=== PATIENT | female | born 1950 | race Caucasian/White ===

== ENCOUNTER 2022-06-09 12:50 | Emergency (ER) | payer MEDICARE, OTHER, SELFPAY ==
--- NOTE | ~2022-06-09 | CT_ITS ---
EXAMINATION: CT CHEST WITHOUT CONTRAST CLINICAL INFORMATION: Cough and shortness of breath. History of pulmonary fibrosis. COMPARISON: CXR from 06/09/2022 TECHNIQUE: Multidetector volumetric CT imaging of the chest was done. Axial MIP volume rendering provided. Sagittal and coronal reformatted images were obtained. This CT examination was performed using dose optimization techniques as appropriate, variously including the following: *Automated exposure control *Adjustment of mA and/or kV according to patient size (this includes techniques or standardized protocols for targeted exams where dose is matched to indication/reason for exam; i.e. extremities or head) *Use of iterative reconstruction technique DLP: 178 mGy-cm FINDINGS: LUNGS AND PLEURA: There are imaging abnormalities of severe interstitial pulmonary fibrosis. Findings include diffuse reticular opacity and honeycombing throughout the left lung. Also, there are reticular opacities and scattered regions of subpleural honeycombing in the right upper, right middle and right lower lobe. Nonspecific patchy groundglass opacities are present in the right upper, right middle and right lower lobes. Multiple micronodular opacities in the right lung, as well, possibly secondary to noninfectious or infectious bronchiolitis. No comparison chest CT exams to allow commentary on the chronicity of these findings. No pleural effusion or pneumothorax. Prior wedge resection of the posterior right upper lobe. CARDIOVASCULAR: The heart size is normal. No pericardial effusion. There is chronic left-sided shift of cardiomediastinal structures. Pulmonary arteries are in the normal size range. Mild atherosclerosis of the thoracic aorta without aneurysm. MEDIASTINUM AND LOWER NECK: No mediastinal mass. There appears to be mild amount of gas in the esophageal vestibule; no overt hiatal hernia. Thyroid gland is atrophied. LYMPHATICS: No axillary or internal mammary lymphadenopathy. Mildly enlarged lymph node in the prevascular space of the mediastinum is 1 cm in short axis dimension. Subcarinal lymph node is difficult to precisely measure; it is approximately 1.3 cm AP. No bulky hilar lymphadenopathy, although evaluation for hilar lymph nodes is partially limited by the noncontrast nature of this test. UPPER ABDOMEN: Unremarkable. SKELETAL AND CHEST WALL: Bones are appeared to be diffusely osteopenic. Old compression fractures of the T5, T7 and T8 vertebral bodies. No suspicious bone lesions. CT/CT chest wo con IMPRESSION: * Severe pulmonary fibrosis with findings of extensive honeycombing throughout the left lung and scattered regions of honeycombing in the right lung. * The micronodular opacities in the right lung could be a manifestation of noninfectious or infectious bronchiolitis. * The patchy ground glass opacities in the right lung are nonspecific and of uncertain chronicity. They could reflect presence of infectious or noninfectious pneumonitis, depending on the overall clinical context. * Mild lymphadenopathy observed in the mediastinum is likely reactive lymphadenopathy. * Old compression fractures of T5, T7 and T8 vertebral bodies.
--- NOTE | ~2022-06-09 | XR_ITS ---
EXAMINATION: XR CHEST CLINICAL INFORMATION: Shortness of breath. COMPARISON: None TECHNIQUE: Frontal view of the chest was obtained. FINDINGS: Coarsened interstitial markings are seen bilaterally with cystic changes, left greater than right. Mild cardiac mediastinal shift to the left. The heart and mediastinal structures are otherwise unremarkable. XR/XR chest 1V IMPRESSION: Coarsened interstitial markings bilaterally suggest chronic interstitial disease with cystic changes and volume loss in the left lung. An acute on chronic infectious/inflammatory process cannot be excluded.
--- NOTE | ~2022-06-09 | CT_ITS ---
EXAMINATION: CT ABDOMEN AND PELVIS WITHOUT CONTRAST CLINICAL INFORMATION: Flank pain. Dysuria. Question renal colic. COMPARISON: Same day corresponding chest CT TECHNIQUE: Multidetector volumetric imaging was performed from the superior aspect of the liver through the pubic symphysis. Sagittal and coronal reformatted images were obtained on the technologist's workstation. This CT examination was performed using dose optimization techniques as appropriate, variously including the following: *Automated exposure control *Adjustment of mA and/or kV according to patient size (this includes techniques or standardized protocols for targeted exams where dose is matched to indication/reason for exam; i.e. extremities or head) *Use of iterative reconstruction technique DLP: 442 mGy-cm FINDINGS: Please see same day corresponding chest CT report for findings of the included chest. The liver demonstrates normal size, contour and attenuation. There is 1.5 cm cyst within the caudate lobe of the liver. A few other smaller hepatic hypodensities are too small to accurately characterize. The gallbladder is normal in appearance. The pancreas, spleen and right adrenal gland are unremarkable. There is mild hypertrophy of the left adrenal gland. Symmetrically sized kidneys. There is a 1 cm nonobstructing curvilinear calculus within the lower pole of the right kidney which demonstrates Hounsfield units of approximately 500. This stone is located approximately 8.6 cm from the posterior skin surface. There are a few other scattered 1 to 2 mm nonobstructing calculi within the upper pole of the right kidney. No left-sided renal calculi are identified. There is no hydronephrosis of either kidney. There is a partially exophytic cyst off the right kidney which measures approximately 5.8 cm in maximum dimension. Normal caliber loops of small and large bowel. Normal appendix. Moderate colonic diverticulosis without CT evidence to suggest active diverticulitis. Tiny hiatal hernia is noted. Normal caliber abdominal aorta demonstrating mild to moderate atherosclerotic disease. No retroperitoneal lymphadenopathy. Tiny fat-containing umbilical hernia. The bladder is decompressed and therefore not optimally characterized. Unremarkable CT appearance of the uterus. No gross free pelvic fluid. No inguinal lymphadenopathy. Diffuse osteopenia. Degenerative changes of the spine. CT/CT abdomen pelvis wo con IMPRESSION: -Nonobstructing right renal calculi. No left-sided renal calculi. No hydronephrosis of either kidney. -Right renal cyst. -Colonic diverticulosis. Fleischner guidelines were followed.
[2022-06-09 14:16] VITALS: BP 138/65; PULSE 91; RESP 19; TEMP 37.3; O2SAT 93; BMI 21.5
--- NOTE | 2022-06-09 14:21 | ECG_ITS ---
Test Reason : SOB Blood Pressure : / mmHG Vent. Rate : 076 BPM Atrial Rate : 076 BPM P-R Int : 110 ms QRS Dur : 094 ms QT Int : 404 ms P-R-T Axes : -06 -01 -03 degrees QTc Int : 454 ms Sinus rhythm with short LA ST & T wave abnormality, consider anterior ischemia Abnormal ECG No previous ECGs available Referred By: Generic ED Physician Electronically Signed By:ABBY ZAVALA
[2022-06-09 14:50] LABS: MANUAL DIFF FLAG NO
[2022-06-09 14:55] LABS: Basophils Absolute Auto 0.1 X10*3/uL (0.0-0.2); Basophils Percent Auto 0.9 % (0-2); Eosinophils Absolute Auto 0.4 X10*3/uL (0.0-0.4); Eosinophils Percent Auto 5.4 % (0-4); Hematocrit 39.6 % (37.0-47.0); Hemoglobin 12.4 g/dl (12.0-16.0); Imm Gran Abs Auto 0.02 X10*3/uL (0.00-0.03); Imm Gran Pct Auto 0.3 % (0.0-0.4); Lymphocytes Absolute Auto 1.4 X10*3/uL (1.2-4.9); Lymphocytes Percent Auto 20.8 % (20-40); Mean Corpuscular HGB Conc 31.3 g/dl (31.0-35.0); Mean Corpuscular Hemoglobin 27.2 pg (27.0-33.0); Mean Corpuscular Volume 86.8 fL (80.0-98.0); Monocytes Absolute Auto 0.7 X10*3/uL (0.1-1.2); Monocytes Percent Auto 10.6 % (2-11); Neutrophils Absolute Auto 4.1 x10*3/uL (2.0-8.3); Platelet Count 412 X10*3/uL (160-400); Red Blood Count 4.56 X10*6/uL (4.20-5.50); Red Cell Distribution Width 13.5 % (11.0-16.0); White Blood Count 6.5 X10*3/uL (4.8-10.8)
[2022-06-09 14:57] LABS: Appearance Urine CLEAR; Color Urine YELLOW; Glucose Urine UA NEG (NEG); Leukocyte Esterase Urine 1+ (NEG); Nitrite Urine NEG (NEG); PH 5.5 (5.0-8.0); Specific Gravity - Urine >= 1.030 (1.005-1.025); UACC Culture Trigger YES; Urine Blood 2+ (NEG); Urine Ketones 5 MG/DL (NEG); Urine Protein NEG (NEG-TRACE)
[2022-06-09 15:15] LABS: Anion Gap 11 (12-20); Blood Urea Nitrogen 15 mg/dL (9-16); Calcium 8.7 mg/dL (8.4-10.2); Carbon Dioxide 26 mmol/L (22-29); Chloride 104 mmol/L (96-108); Estimated Glomerular Filt Rate > 60; Glucose Random 92 mg/dL (60-115); Potassium 4.2 mmol/L (3.3-5.1); Sodium 137 mmol/L (135-145)
[2022-06-09 15:18] LABS: B Type Natriuretic Peptide 64 pg/mL (<100); Troponin-I High Sensitivity 3.8 ng/L (<3.5-17.0)
[2022-06-09 15:25] LABS: Mucus Urine 1+ /LPF; Squamous Epithelial Cell Urine 1+ /LPF
[2022-06-09 15:26] LABS: Calcium Oxalate Crystals Urine 1+ /LPF
[2022-06-09 15:29] LABS: COVID-19 Test Negative (Negative); IDNOW Serial# 16C4AD1C
--- NOTE | 2022-06-09 18:04 | ED_ITS ---
HPI - SOB/Dyspnea General Chief Complaint: Dyspnea Stated Complaint: diff breathing lungs full of something Time Seen by Provider: 06/09/22 14:42 Source: patient and family Mode of arrival: ambulatory History of Present Illness HPI Narrative: 72-year-old female with history of interstitial pulmonary fibrosis reports feeling more short of breath than usual and complaining of feeling congested at the right side of her chest and coughing up green sputum. She denies any fevers or chest pain and states that she has noticed some bleeding after peeing. She also had significant cramping in the lower abdominal area and does have a history of renal colic. Patient states that her oxygenation is 94% at baseline. Patient states she is aware that she has ?almost no long on the left?. Related Data Previous Rx's Medication Instructions Recorded amoxicillin 875 mg-potassium 1 tab PO Q12H 7 days #14 tabs 06/09/22 clavulanate 125 mg tablet Allergies Allergy/AdvReac Type Severity Reaction Status Date / Time No Known Allergies Allergy Verified 06/09/22 14:15 Review of Systems Review of Systems: Pertinent positives and negatives as stated in HPI 10 point review of systems is otherwise negative. PMFSH Past Medical History Source: nursing notes reviewed Social History Social History Advance Directives: Yes Advance Directives Information Provided: No Advance Directives on File: No Physical Exam Vital Signs: Vital Signs: Last Vital Signs Temp 99.1 F 06/09/22 14:16 Pulse 91 06/09/22 14:16 Resp 19 06/09/22 14:16 BP 138/65 06/09/22 14:16 Pulse Ox 93 06/09/22 14:16 O2 Del Method 06/09/22 14:16 BMI result Body Mass Index 21.5 VITAL SIGNS: Reviewed. GENERAL: Well developed, well nourished, in no acute distress. HEAD: Normocephalic/atraumatic EYES: PERRLA, EOMI EARS: Ext canals without abnormality OROPHARYNX: no oral lesions noted, posterior pharynx clear LUNGS: Good inspiratory effort, minimal breath sounds on the left, otherwise coarse rhonchi and crackles throughout. No increased work of breathing. SpO2<93> CARDIOVASCULAR: Regular rate and rhythm without noted murmurs, no JVD or lower extremity edema. ABDOMEN: Soft, non-tender, non-distended with bowel sounds. MUSCULOSKELETAL: No tenderness, deformities, or effusions noted on gross inspection. EXTREMITIES: No cyanosis, clubbing or edema. SKIN: Inspection of the skin reveals no rashes NEUROLOGIC: Alert and oriented x 4. Strength and sensation to light touch were grossly intact x 4. Course Course Course Narrative: 72-year-old female with history and clinical presentation suggestive of possible renal colic/cystitis although patient is no longer experiencing lower abdominal/pelvic cramping and suspect that on review of all investigations with patient's chest x-ray and CT scan that she will likely require antibiotics. Urinalysis was also noted to be positive for blood further supporting the possibility of renal colic. CT scan of abdomen pelvis is pending and patient was provided with initial antibiotics here in the emergency room. Signed out to Dr Oh: f/u CT scan abd/pelvis MDM - SOB/Dyspnea Lab Data Result diagrams: 06/09/22 14:30 06/09/22 14:30 Labs: Lab Results 06/09/22 06/09/22 06/09/22 Range/Units 14:30 14:30 14:30 WBC 6.5 (4.8-10.8) X10*3/uL RBC 4.56 (4.20-5.50) X10*6/uL Hgb 12.4 (12.0-16.0) g/dl Hct 39.6 (37.0-47.0) % MCV 86.8 (80.0-98.0) fL MCH 27.2 (27.0-33.0) pg MCHC 31.3 (31.0-35.0) g/dl RDW 13.5 (11.0-16.0) % Plt Count 412 H (160-400) X10*3/uL MPV 9.0 L (9.4-12.3) fL Immature Gran % (Auto) 0.3 (0.0-0.4) % Neut % (Auto) 62.0 (45-73) % Lymph % (Auto) 20.8 (20-40) % [place] % (Auto) 10.6 (2-11) % Eos % (Auto) 5.4 H (0-4) % Baso % (Auto) 0.9 (0-2) % Lymph # (Auto) 1.4 (1.2-4.9) X10*3/uL [place] # (Auto) 0.7 (0.1-1.2) X10*3/uL Eos # (Auto) 0.4 (0.0-0.4) X10*3/uL Baso # (Auto) 0.1 (0.0-0.2) X10*3/uL Abs Immat Gran (auto) 0.02 (0.00-0.03) X10*3/uL Absolute Neuts (auto) 4.1 (2.0-8.3) x10*3/uL Absolute Nucleated RBC 0.000 (0.0-0.012) X10*3/uL Nucleated RBC % (auto) 0.0 (0.0-0.2) /100WBC Sodium 137 (135-145) mmol/L Potassium 4.2 (3.3-5.1) mmol/L Chloride 104 (96-108) mmol/L Carbon Dioxide 26 (22-29) mmol/L Anion Gap 11 L (12-20) BUN 15 (9-16) mg/dL Creatinine 0.60 (0.5-1.4) mg/dL Estim Creat Clear Calc 66.0 Estimated GFR > 60 Random Glucose 92 (60-115) mg/dL Calcium 8.7 (8.4-10.2) mg/dL Troponin I High Sens 3.8 (<3.5-17.0) ng/L B-Natriuretic Peptide 64 (<100) pg/mL Urine Color Urine Appearance Urine pH (5.0-8.0) Ur Specific [place] (1.005-1.025) Urine Protein (NEG-TRACE) MG/DL Urine Glucose (UA) (NEG) MG/DL Urine Ketones (NEG) MG/DL Urine Blood (NEG) Urine Nitrite (NEG) Ur Leukocyte Esterase (NEG) Urine RBC (0) /HPF Urine WBC (0-4) /HPF Ur Squamous Epith Cells /LPF Calcium Oxalate Crystal /LPF Urine Bacteria /LPF Urine Mucus /LPF COVID-19 (JUANITA) (Negative) COVID-19 Clin Com 06/09/22 06/09/22 Range/Units 14:30 14:30 WBC (4.8-10.8) X10*3/uL RBC (4.20-5.50) X10*6/uL Hgb (12.0-16.0) g/dl Hct (37.0-47.0) % MCV (80.0-98.0) fL MCH (27.0-33.0) pg MCHC (31.0-35.0) g/dl RDW (11.0-16.0) % Plt Count (160-400) X10*3/uL MPV (9.4-12.3) fL Immature Gran % (Auto) (0.0-0.4) % Neut % (Auto) (45-73) % Lymph % (Auto) (20-40) % [place] % (Auto) (2-11) % Eos % (Auto) (0-4) % Baso % (Auto) (0-2) % Lymph # (Auto) (1.2-4.9) X10*3/uL [place] # (Auto) (0.1-1.2) X10*3/uL Eos # (Auto) (0.0-0.4) X10*3/uL Baso # (Auto) (0.0-0.2) X10*3/uL Abs Immat Gran (auto) (0.00-0.03) X10*3/uL Absolute Neuts (auto) (2.0-8.3) x10*3/uL Absolute Nucleated RBC (0.0-0.012) X10*3/uL Nucleated RBC % (auto) (0.0-0.2) /100WBC Sodium (135-145) mmol/L Potassium (3.3-5.1) mmol/L Chloride (96-108) mmol/L Carbon Dioxide (22-29) mmol/L Anion Gap (12-20) BUN (9-16) mg/dL Creatinine (0.5-1.4) mg/dL Estim Creat Clear Calc Estimated GFR Random Glucose (60-115) mg/dL Calcium (8.4-10.2) mg/dL Troponin I High Sens (<3.5-17.0) ng/L B-Natriuretic Peptide (<100) pg/mL Urine Color YELLOW Urine Appearance CLEAR Urine pH 5.5 (5.0-8.0) Ur Specific [place] >= 1.030 H (1.005-1.025) Urine Protein NEG (NEG-TRACE) MG/DL Urine Glucose (UA) NEG (NEG) MG/DL Urine Ketones 5 (NEG) MG/DL Urine Blood 2+ H (NEG) Urine Nitrite NEG (NEG) Ur Leukocyte Esterase 1+ H (NEG) Urine RBC 10-14 H (0) /HPF Urine WBC 1-4 (0-4) /HPF Ur Squamous Epith Cells 1+ /LPF Calcium Oxalate Crystal 1+ /LPF Urine Bacteria NONE /LPF Urine Mucus 1+ /LPF COVID-19 (JUANITA) Negative (Negative) COVID-19 Clin Com See Note Discharge Plan Discharge Clinical Impression: Bronchitis, Cystitis Patient Disposition: Still a Patient Prescriptions: New amoxicillin-pot clavulanate 875-125 mg tablet 1 tab PO Q12H 7 Days Qty: 14 0RF
[2022-06-09] MEDS: Amoxicillin/Potassium Clav 875 MG TABLET PO (18:26)
--- NOTE | 2022-06-09 19:06 | PC.NURSE ---
Assumed care of this pt. at 1900 - report from Tish Morin RN
[2022-06-09] MEDS: predniSONE 20 MG TABLET 40 MG PO (19:45)
[2022-06-09 19:46] VITALS: BP 136/60; PULSE 81; RESP 20; TEMP 36.2; O2SAT 96
== END 2022-06-09 20:03 | disposition home or self-care (01) ==
PROVIDERS: Student in an Organized Health Care Education/Training Program; Emergency Provider Internal Medicine
DX: J40 Bronchitis, not specified as acute or chronic (principal); N30.90 Cystitis, unspecified without hematuria; R10.9 Unspecified abdominal pain; M54.6 Pain in thoracic spine; R06.02 Shortness of breath; Z20.822 Contact with and (suspected) exposure to COVID-19; Z79.899 Other long term (current) drug therapy
CPT/HCPCS: 36415; 71045; 71250; 74176; 80048; 81001; 83880; 84484; 85025; 87086; 87635; 93005; 99284

== ENCOUNTER 2022-06-20 15:04 | Inpatient (IN) | payer MEDICARE, OTHER, SELFPAY ==
--- NOTE | ~2022-06-20 | XR_ITS ---
EXAMINATION: XR CHEST CLINICAL INFORMATION: Shortness of breath COMPARISON: Chest x-ray 06/01/2022. CT chest 06/01/2022 TECHNIQUE: 2 views of the chest were obtained. FINDINGS: Stable chronic changes of marked interstitial lung disease with coarse cystic areas throughout the lung. No acute change of chest. No acute airspace disease. No pleural effusion or pneumothorax. XR/XR chest 2V IMPRESSION: Stable chronic changes. No acute abnormality.
[2022-06-20 16:12] VITALS: BP 113/54; PULSE 103; RESP 16; TEMP 36.6; O2SAT 89; BMI 21.0
--- NOTE | 2022-06-20 16:42 | PC.NURSE ---
relief docking master (Annita Coe) aware of patient's room air oxygen saturation. Per pt, baseline oxygen is 93-94% on room air. Dx with bronchitis 1 week ago.
[2022-06-20 21:08] VITALS: BP 102/48; PULSE 79; TEMP 36.4; O2SAT 86
[2022-06-20 21:16] LABS: Basophils Absolute Auto 0.1 X10*3/uL (0.0-0.2); Basophils Percent Auto 0.6 % (0-2); Eosinophils Absolute Auto 0.5 X10*3/uL (0.0-0.4); Eosinophils Percent Auto 5.8 % (0-4); Hematocrit 42.4 % (37.0-47.0); Imm Gran Abs Auto 0.04 X10*3/uL (0.00-0.03); Imm Gran Pct Auto 0.5 % (0.0-0.4); Lymphocytes Absolute Auto 1.7 X10*3/uL (1.2-4.9); Lymphocytes Percent Auto 19.7 % (20-40); MANUAL DIFF FLAG NO; Mean Corpuscular HGB Conc 30.7 g/dl (31.0-35.0); Mean Corpuscular Hemoglobin 26.5 pg (27.0-33.0); Mean Corpuscular Volume 86.4 fL (80.0-98.0); Mean Platelet Volume 9.1 fL (9.4-12.3); Neutrophils Absolute Auto 5.2 x10*3/uL (2.0-8.3); Neutrophils Percent Auto 61.4 % (45-73); Platelet Count 376 X10*3/uL (160-400); Red Blood Count 4.91 X10*6/uL (4.20-5.50); Red Cell Distribution Width 13.9 % (11.0-16.0); White Blood Count 8.5 X10*3/uL (4.8-10.8)
[2022-06-20 21:29] LABS: Anion Gap 12 (12-20); Blood Urea Nitrogen 18 mg/dL (9-16); Calcium 8.6 mg/dL (8.4-10.2); Carbon Dioxide 28 mmol/L (22-29); Chloride 105 mmol/L (96-108); Creatinine Clr Calc Pharmacy 62.9; Estimated Glomerular Filt Rate > 60; Glucose Random 133 mg/dL (60-115); Sodium 141 mmol/L (135-145)
[2022-06-20 21:31] LABS: COVID-19 Test Negative (Negative)
--- NOTE | 2022-06-20 22:10 | ED.SOB ---
HPI - SOB/Dyspnea General Chief Complaint: Dyspnea Stated Complaint: Bronchitis Time Seen by Provider: 06/20/22 22:10 Source: patient Mode of arrival: ambulatory Limitations: no limitations History of Present Illness HPI Narrative: patient with idiopathic pulmonary fibrosis was seen here on 06/09 came from [facility] being of increased shortness breath for last [address] scan of the chest on 06/09 which shows honeycombing and multiple infiltrates but CBC count were normal discharged on doxycycline Augmentin could not take Augmentin because of size of the pill and nausea. patient to the course of prednisone also Comes here is not getting better. When patient was influenza she was doing much better than after coming to this area. No fever no chills no chest pain or palpitation patient shortness of breath gets worse when ambulating was saturating 86% at room air on arrival Related Data Previous Rx's Medication Instructions Recorded amoxicillin 875 mg-potassium 1 tab PO BID #20 tabs 06/09/22 clavulanate 125 mg tablet codeine 10 mg-guaifenesin 100 mg/5 10 ml PO Q6H PRN cough #237 mL 06/09/22 mL oral liquid doxycycline hyclate 100 mg tablet 100 mg PO BID #20 tabs 06/09/22 prednisone 20 mg tablet 40 mg PO DAILY #10 tabs 06/09/22 Allergies Allergy/AdvReac Type Severity Reaction Status Date / Time amoxicillin [From Augmentin] Allergy Vomiting Verified 06/20/22 16:19 clavulanic acid Allergy Vomiting Verified 06/20/22 16:19 [From Augmentin] Review of Systems Review of Systems: Yes all other systems are reviewed and are negative PMFSH Social History Social History Advance Directives: No Advance Directives Information Provided: No Physical Exam Vital Signs: Vital Signs: Last Vital Signs Temp 98.7 F 06/21/22 00:24 Pulse 88 06/21/22 00:24 Resp 20 06/21/22 00:24 BP 118/53 L 06/21/22 00:24 Pulse Ox 91 L 06/21/22 00:24 O2 Del Method 06/21/22 00:24 O2 Flow Rate 2 06/21/22 00:24 BMI result Body Mass Index 21.0 Appearance: Alert. Oriented X3. thin emaciated patient Eyes: no pallor or icterus ENT: Pharynx normal. Oral Mucosa moist Neck: Normal inspection. Neck supple. CVS: Normal heart rate and rhythm. Pulses normal. Respiratory: mild respiratory distress. Equal air entry bilateral, bilateral rhonchi and crackles diffusely Abdomen: Soft and nontender. Bowel sounds are present, no mass palpable, no CVA tenderness Skin: Skin warm and dry. Normal skin color. Normal skin turgor. Extremities: No lower extremity edema. No calf tenderness clubbing++ Neuro: Oriented X 3. No motor deficit. No sensory deficit.No cerebellar signs , cranial nerves II-XII intact MDM - SOB/Dyspnea MDM Narrative Medical decision making narrative: patient with pulmonary fibrosis with increased hypoxia had a CT scan done on 06/09 which showed diffuse honeycombing throughout the left lung and right lungs taking doxycycline comes here with increased shortness of breath saturating 86- 87% at room having cough with mucopurulent phlegm will admit patient for hypoxia continue steroid treatment and antibiotics Medical Records Attestation: I reviewed the patient's medical records. Lab Data Attestation: I reviewed the patient's lab results. Result diagrams: 06/20/22 21:05 06/20/22 21:05 Labs: Lab Results 06/20/22 06/20/22 06/20/22 Range/Units 21:05 21:05 21:05 WBC 8.5 (4.8-10.8) X10*3/uL RBC 4.91 (4.20-5.50) X10*6/uL Hgb 13.0 (12.0-16.0) g/dl Hct 42.4 (37.0-47.0) % MCV 86.4 (80.0-98.0) fL MCH 26.5 L (27.0-33.0) pg MCHC 30.7 L (31.0-35.0) g/dl RDW 13.9 (11.0-16.0) % Plt Count 376 (160-400) X10*3/uL MPV 9.1 L (9.4-12.3) fL Immature Gran % (Auto) 0.5 H (0.0-0.4) % Neut % (Auto) 61.4 (45-73) % Lymph % (Auto) 19.7 L (20-40) % [place] % (Auto) 12.0 H (2-11) % Eos % (Auto) 5.8 H (0-4) % Baso % (Auto) 0.6 (0-2) % Lymph # (Auto) 1.7 (1.2-4.9) X10*3/uL [place] # (Auto) 1.0 (0.1-1.2) X10*3/uL Eos # (Auto) 0.5 H (0.0-0.4) X10*3/uL Baso # (Auto) 0.1 (0.0-0.2) X10*3/uL Abs Immat Gran (auto) 0.04 H (0.00-0.03) X10*3/uL Absolute Neuts (auto) 5.2 (2.0-8.3) x10*3/uL Absolute Nucleated RBC 0.000 (0.0-0.012) X10*3/uL Nucleated RBC % (auto) 0.0 (0.0-0.2) /100WBC Sodium 141 (135-145) mmol/L Potassium 4.0 (3.3-5.1) mmol/L Chloride 105 (96-108) mmol/L Carbon Dioxide 28 (22-29) mmol/L Anion Gap 12 (12-20) BUN 18 H (9-16) mg/dL Creatinine 0.63 (0.5-1.4) mg/dL Estim Creat Clear Calc 62.9 Estimated GFR > 60 Random Glucose 133 H (60-115) mg/dL Calcium 8.6 (8.4-10.2) mg/dL COVID-19 (JUANITA) Negative (Negative) COVID-19 Clin Com See Note Discharge Plan Discharge Clinical Impression: Acute exacerbation of chronic obstructive airways disease, Pulmonary fibrosis Patient Disposition: Admitted As Inpatient
[2022-06-20 22:24] VITALS: BP 99/48; PULSE 82; RESP 16; TEMP 37.3; O2SAT 98
[2022-06-20] MEDS: Albuterol Sulfate (0.083%) 2.5 MG/3 ML VIAL.NEB 5 MG INHALE (22:47)
[2022-06-20] MEDS: methylPREDNISolone Sod Succ 125 MG/2 ML VIAL IVPUSH (22:51)
[2022-06-20] MEDS: 0.9 % Sodium Chloride 1,000 ML 999 ML IV (23:16)
[2022-06-20] MEDS: cefTRIAXone sodium 1 GM in 0.9 % Sodium Chloride 50 ML IV (23:36)
[2022-06-21] VITALS (8 sets, daily range): BP systolic 96–143; BP diastolic 47–67; PULSE 72–110; RESP 12–22; TEMP 36–37.1; O2SAT 91–96
[2022-06-21] MEDS: Albuterol/Iprat 2.5/0.5MG 3 ML AMPUL.NEB INHALE (01:01)
--- NOTE | 2022-06-21 01:24 | PM.IMHP ---
History of Present Illness Date of Service: 06/21/22 Chief Complaint: SOB, cough This is a 72-year-old female past medical history of IPF who presents to the hospital with complaints of shortness of breath, cough, and sputum production. Patient reports that her symptoms started at the end of May, she was seen in the hospital on 06/09, and at that time was diagnosed with bronchitis, was given doxycycline and Augmentin and discharged home. Patient reports that she was unable to take Augmentin because it made her feel very sick and she vomited after every pill, she did take doxycycline, she was also given prednisone. she reports that she initially improved but then about her few days ago developed worsening shortness of breath, worsening cough, and worsening sputum production. Patient reports no fever but has chills, denies any chest pain, no palpitations, no abdominal pain nausea or vomiting, no diarrhea or constipation, no urinary symptoms and no lower extremity edema. Reports that she lives in [place] currently, but was born and raised in [place] and she visits here often.she currently has no utilization reviewer but has an appointment for utilization reviewer at the end of this month. patient reports that her IPF is usually stable and has not been sick for the past 7 years and that is why she does not really follow up with utilization reviewer. On arrival to the ED patient was found to be satting 87-89% on room air. Patient reports no use of oxygen at home. Labs Are significant for WBC count of 5.6, hemoglobin of 11.7, hematocrit 36.9, BUN of 19, calcium 7.9, COVID-19 negative, chest x-ray showed stable chronic changes with no acute abnormality but when compared to chest x-ray from May it appears worse. Patient started on antibiotics and will be admitted for further management Review of Systems Review of Systems: Yes all other systems are reviewed and are negative REPLACED BY [facility] Medical History (Updated 06/21/22 @ 06:04 by Syeda Montero MD) IPF (idiopathic pulmonary fibrosis) Family History (Updated 06/21/22 @ 06:04 by Syeda Montero MD) Other No family history of coronary artery disease Surgical History (Updated 06/21/22 @ 06:04 by Syeda Montero MD) History of removal of ureteral stent Social History Advance Directives: No Advance Directives Information Provided: No Meds Allergies Allergy/AdvReac Type Severity Reaction Status Date / Time amoxicillin [From Augmentin] Allergy Vomiting Verified 06/20/22 16:19 clavulanic acid Allergy Vomiting Verified 06/20/22 16:19 [From Augmentin] Physical Exam Vital Signs and Narrative: Vital Signs: Last Vital Signs Temp 98.7 F 06/21/22 00:24 Pulse 88 06/21/22 00:24 Resp 20 06/21/22 00:24 BP 118/53 L 06/21/22 00:24 Pulse Ox 91 L 06/21/22 00:24 O2 Del Method 06/21/22 00:24 O2 Flow Rate 2 06/21/22 00:24 BMI result Body Mass Index 21.0 Const: General: cooperative and no acute distress Orientation/consciousness: patient oriented x3 Eyes: General: appearance normal, both eyes and all related structures Pupils: Equal, round and reactive pupils present Resp: Other: significant crackles bilaterally Effort & Inspection: normal respiratory effort Cardio: Rate: regular rate Rhythm: regular rhythm GI: Palpation (GI): Soft to palpation Auscultation: normal bowel sounds Skin: General skin exam: no rashes or lesions noted Neuro: General: patient oriented x3 Cranial nerves: Yes Equal, round and reactive pupils present Cognition (Neuro): normal cognition Extrem: General: Yes normal to inspection and Yes no pedal edema Results Labs CBC and Chem 7: 06/21/22 04:41 06/21/22 04:41 Labs: Laboratory Results - last 24 hr 06/20/22 06/20/22 06/20/22 21:05 21:05 21:05 MCV 86.4 MCH 26.5 L MCHC 30.7 L RDW 13.9 Plt Count 376 MPV 9.1 L Immature Gran % (Auto) 0.5 H Neut % (Auto) 61.4 Lymph % (Auto) 19.7 L [place] % (Auto) 12.0 H Eos % (Auto) 5.8 H Baso % (Auto) 0.6 Lymph # (Auto) 1.7 [place] # (Auto) 1.0 Eos # (Auto) 0.5 H Baso # (Auto) 0.1 Abs Immat Gran (auto) 0.04 H Absolute Neuts (auto) 5.2 Absolute Nucleated RBC 0.000 Nucleated RBC % (auto) 0.0 Anion Gap 12 Estim Creat Clear Calc 62.9 Estimated GFR > 60 Random Glucose 133 H Calcium 8.6 COVID-19 (JUANITA) Negative COVID-19 Clin Com See Note Imaging Radiologist's Impressions: Impressions Chest X-Ray 06/20/22 17:00 IMPRESSION: Stable chronic changes. No acute abnormality. Assessment and Plan (1) Acute respiratory failure with hypoxia: Status: Acute (2) Pulmonary fibrosis: Status: Acute Plan this is a 72-year-old female with history of IPF presents to the hospital with cough, sputum production, dyspnea on minimal exertion # acute respiratory failure with hypoxia - found to have O2 level in the 80s on room air - appears to have increased infiltrates on chest x-ray on my review - no leukocytosis - will treat with IV antibiotics as she failed p.o. antibiotic - Solu-Medrol and DuoNeb p.r.n. - monitor respiratory status # acute exacerbation of IPF - with likely superimposed infection /pneumonia - IV antibiotics, Solu-Medrol, breathing treatment p.r.n. - O2 as required - Follow utilization reviewer's outpatient once stable for discharge DVT prophylaxis: Lovenox given patient's hypoxia need for oxygen, as well as failed outpatient oral antibiotics, patient will require minimum 2 night hospital stay for further management and monitoring Quality Stroke Does the patient have a stroke diagnosis?: No VTE Prior VTE?: No VTE Risk Level:: Medical - moderate - high VTE Device Contraindication: Treatment Not Indicated VTE Drug Contraindication: N/A - Med Ordered
[2022-06-21] MEDS: Albuterol Sulfate (0.083%) 2.5 MG/3 ML VIAL.NEB 5 MG INHALE (01:35)
[2022-06-21] MEDS: methylPREDNISolone Sod Succ 40 MG/ML VIAL IVPUSH ×2 (03:02→13:28)
[2022-06-21 05:00] LABS: Basophils Percent Auto 0.5 % (0-2); Eosinophils Percent Auto 0.2 % (0-4); Hematocrit 36.9 % (37.0-47.0); Hemoglobin 11.7 g/dl (12.0-16.0); Imm Gran Abs Auto 0.03 X10*3/uL (0.00-0.03); Imm Gran Pct Auto 0.5 % (0.0-0.4); Lymphocytes Absolute Auto 0.2 X10*3/uL (1.2-4.9); Lymphocytes Percent Auto 3.9 % (20-40); MANUAL DIFF FLAG SCAN; Mean Corpuscular HGB Conc 31.7 g/dl (31.0-35.0); Mean Corpuscular Hemoglobin 27.5 pg (27.0-33.0); Mean Corpuscular Volume 86.6 fL (80.0-98.0); Mean Platelet Volume 9.4 fL (9.4-12.3); Monocytes Percent Auto 0.4 % (2-11); Neutrophils Absolute Auto 5.3 x10*3/uL (2.0-8.3); Neutrophils Percent Auto 94.5 % (45-73); Platelet Count 294 X10*3/uL (160-400); Red Blood Count 4.26 X10*6/uL (4.20-5.50); Red Cell Distribution Width 14.1 % (11.0-16.0); SCAN SMEAR FLAG 1; White Blood Count 5.6 X10*3/uL (4.8-10.8)
[2022-06-21 05:20] LABS: Anion Gap 13 (12-20); Blood Urea Nitrogen 19 mg/dL (9-16); Calcium 7.9 mg/dL (8.4-10.2); Carbon Dioxide 24 mmol/L (22-29); Chloride 107 mmol/L (96-108); Creatinine Clr Calc Pharmacy 63.8; Estimated Glomerular Filt Rate > 60; Glucose Random 253 mg/dL (60-115); Potassium 3.3 mmol/L (3.3-5.1); Sodium 141 mmol/L (135-145)
[2022-06-21 05:21] LABS: SLIDE REVIEW VERIFIED
[2022-06-21] MEDS: Enoxaparin Sodium 40 MG/0.4 ML SYRINGE SUBCUT (07:20)
[2022-06-21] MEDS: Azithromycin 500 MG TABLET PO (07:20)
--- NOTE | 2022-06-21 07:23 | PC.NURSE ---
Pt A&OX4 at this time, no complaints of pain, lungs diminished in the bases, NSR on monitor at this time. Antibiotic given with breakfast tray as per pt request, states she cannot take without food due to nausea. Pt is ambulatory into the bathroom on RA with no difficulties. Pt remains on 2L NC at this time, BP slightly soft but taken just upon waking. Call reed within reach. Will continue to monitor.
--- NOTE | 2022-06-21 09:40 | MHC.CM.ED ---
PATIENT IS VISITING FOR THE SUMMER FROM [facility]. SHE DOES HAVE A NEW PCP THERE AND CASE MANAGEMENT WILL LOOK UP NAME AND ADDRESS. COVID VAX X 4. NO DME OR VNA SERVICES. SISTER ALTA IS THE HCP AND A COPY IS REQUESTED. PATIENT IS NOT ON O2 AND HOPES TO BE ABLE TO DC WITHOUT THE USE OF. IMM 06/21 IN CHART
--- NOTE | 2022-06-21 10:01 | PHA.MEDREC ---
Pharmacy Consult ? Medication Reconciliation Pharmacy has completed the medication reconciliation. Patient brought in rx bottles of medications prescribed last time. Reports allergy to the augmenting where she vomited as well as difficultly breathing. Patient reports never using the cough syrup but has it at home if needed. Previously on multivitamin but a provider told her stop do to interactions. Meggan Joseph, PharmD
[2022-06-21 10:11] LABS: Erythrocyte Sedimentation Rate 42 MM/HR (0-20)
[2022-06-21] MEDS: 0.9 % Sodium Chloride Flush 3 ML SYRINGE IVFLUSH (13:32)
--- NOTE | 2022-06-21 13:54 | P.EN_ITS ---
Event Note Date of Service: 06/21/22 Event Note: S Wheezing + dyspneic though improved from admission Thick green sputum O VS- Temp Pulse Resp BP Pulse Ox O2 Del Method O2 Flow Rate 96.8 F 72 18 143/67 H 96 2 06/21/22 11:36 06/21/22 11:36 06/21/22 11:36 06/21/22 11:36 06/21/22 11:36 06/21/22 11:36 06/21/22 11:36 gen- NAD lungs- diffuse insp crackles + exp wheezes CV- RRR no m/r/g abd- soft/NT ext- no C/C/E labs- Laboratory Results - last 24 hr 06/20/22 06/20/22 06/20/22 21:05 21:05 21:05 WBC 8.5 RBC 4.91 Hgb 13.0 Hct 42.4 MCV 86.4 MCH 26.5 L MCHC 30.7 L RDW 13.9 Plt Count 376 MPV 9.1 L Immature Gran % (Auto) 0.5 H Neut % (Auto) 61.4 Lymph % (Auto) 19.7 L [place] % (Auto) 12.0 H Eos % (Auto) 5.8 H Baso % (Auto) 0.6 Lymph # (Auto) 1.7 [place] # (Auto) 1.0 Eos # (Auto) 0.5 H Baso # (Auto) 0.1 Abs Immat Gran (auto) 0.04 H Absolute Neuts (auto) 5.2 Absolute Nucleated RBC 0.000 Nucleated RBC % (auto) 0.0 Smear Tech's Comments ESR Sodium 141 Potassium 4.0 Chloride 105 Carbon Dioxide 28 Anion Gap 12 BUN 18 H Creatinine 0.63 Estim Creat Clear Calc 62.9 Estimated GFR > 60 Random Glucose 133 H Calcium 8.6 COVID-19 (JUANITA) Negative COVID-19 Clin Com See Note 06/21/22 06/21/22 06/21/22 04:41 04:41 09:08 WBC 5.6 RBC 4.26 Hgb 11.7 L Hct 36.9 L MCV 86.6 MCH 27.5 MCHC 31.7 RDW 14.1 Plt Count 294 MPV 9.4 Immature Gran % (Auto) 0.5 H Neut % (Auto) 94.5 H Lymph % (Auto) 3.9 L [place] % (Auto) 0.4 L Eos % (Auto) 0.2 Baso % (Auto) 0.5 Lymph # (Auto) 0.2 L [place] # (Auto) 0.0 L Eos # (Auto) 0.0 Baso # (Auto) 0.0 Abs Immat Gran (auto) 0.03 Absolute Neuts (auto) 5.3 Absolute Nucleated RBC 0.000 Nucleated RBC % (auto) 0.0 Smear Tech's Comments VERIFIED ESR 42 H Sodium 141 Potassium 3.3 Chloride 107 Carbon Dioxide 24 Anion Gap 13 BUN 19 H Creatinine 0.62 Estim Creat Clear Calc 63.8 Estimated GFR > 60 Random Glucose 253 H Calcium 7.9 L D COVID-19 (JUANITA) COVID-19 Clin Com A/P hospital d#1 72yo F with IPF presenting with dyspnea + productive cough + wheeze, found to be hyypoxic # IPF exacerbation - continue ceftriaxone + azithromycin d#2, check PCT + sputum Cx - check resp virus panel - IV steroids, nebulized bronchoilators - Pulmonology consultation # acute hypoxic resp failure # VTE ppx: LMWH In my clinical judgment, the patient requires continued hospitalization for the following reasons: hypoxia, IV ABX
[2022-06-21 14:44] LABS: Procalcitonin 0.04 ng/mL
[2022-06-21 15:28] LABS: Adenovirus PCR Not Detected (Not Detect.); Bordetella parapertussis PCR Not Detected (Not Detect.); Bordetella pertussis PCR Not Detected (Not Detect.); Chlamydia pneumoniae PCR Not Detected (Not Detect.); Coronavirus 229E PCR Not Detected (Not Detect.); Coronavirus HKU1 PCR Not Detected (Not Detect.); Coronavirus NL63 PCR Not Detected (Not Detect.); Coronavirus OC43 PCR Not Detected (Not Detect.); Human metapneumovirus PCR Not Detected (Not Detect.); Influenza A PCR Not Detected (Not Detect.); Influenza B PCR Not Detected (Not Detect.); Mycoplasma pneumoniae PCR Not Detected (Not Detect.); Parainfluenza 1 PCR Not Detected (Not Detect.); Parainfluenza 2 PCR Not Detected (Not Detect.); Parainfluenza 3 PCR Not Detected (Not Detect.); Parainfluenza 4 PCR Not Detected (Not Detect.); RSV PCR Not Detected (Not Detect.); Rhino/Enterovirus PCR Not Detected (Not Detect.); SARS-CoV-2 PCR Not Detected (Not Detect.)
[2022-06-22] VITALS (7 sets, daily range): BP systolic 101–140; BP diastolic 51–87; PULSE 62–96; RESP 16–18; TEMP 35.8–37; O2SAT 93–98
[2022-06-22] MEDS: 0.9 % Sodium Chloride Flush 3 ML SYRINGE IVFLUSH ×4 (00:05→22:09)
[2022-06-22] MEDS: cefTRIAXone sodium 1 GM in 0.9 % Sodium Chloride 50 ML IV ×2 (00:05→22:09)
[2022-06-22] MEDS: methylPREDNISolone Sod Succ 40 MG/ML VIAL IVPUSH (00:06)
[2022-06-22] MEDS: Azithromycin 500 MG TABLET PO (05:51)
[2022-06-22] MEDS: Enoxaparin Sodium 40 MG/0.4 ML SYRINGE SUBCUT (07:30)
--- NOTE | 2022-06-22 09:13 | PM.CNPUL ---
History of Present Illness History of Present Illness Consult date: 06/22/22 Chief complaint: hypoxic resp failure Narrative: This is an inpatient pulmonary consultation. The patient is a 72-year-old woman visiting from [place] with a history of biopsy-proven idiopathic pulmonary fibrosis also with a family history of pulmonary fibrosis. Apparently she has had this diagnosis for more than 10 years and she has been living on her own and on room air. She has been followed closely in [place] for her chronic respiratory disease. The patient is visiting her family in [place]. Upon arrival to [place] she started developing worsening chest congestion and folic she had a lower respiratory infection. She was initially evaluated in the ER briefly. She was given medications and discharged. She was given outpatient pulmonary consultation. However, her symptoms worsened so therefore she decided to go back to the ER. A point she demonstrated acute respiratory failure needing oxygen and she was admitted to the hospital. Her CT scan was personally by me demonstrating extensive honeycombing of her left hemithorax and also honeycombing on the right side primarily in the periphery preserving center areas. It appears that she does have some patchy areas of ground-glass opacity in the right hemithorax now. No significant lymphadenopathy. In view of her significant disease the patient was admitted to the hospital placed on IV antibiotics and also IV steroids with Solu-Medrol. The patient has been feeling better. She was noticing some wheezing therefore nebulized therapy was provided with good results. She would like to continue nebulizer as an outpatient. The patient did have a chance repeat chest x-ray demonstrating no evidence of any worsening. On further questioning the patient states that she had a video-assisted thoracoscopy many years ago where she was given diagnosis of idiopathic pulmonary fibrosis. Denies any evidence of any hypersensitivity pneumonitis or any rheumatoid arthritis or any other connective tissue conditions. She also has a positive family history in which makes it more likely IPF. She was then started on Esbriet. She is tolerating the medicine well she has never tried Ofev. At this point she has been complaining of increasing reflux symptoms. Review of Systems Constitutional: Constitutional: Denies fever(s) Eyes: Eyes: Denies change in vision ENT: Reports system reviewed and no additional complaints, except as documented Cardiovascular: Cardiovascular: Denies chest pain and Reports dyspnea Respiratory: Respiratory: Reports change in phlegm color, Reports chest congestion, Reports cough, Denies hemoptysis, Reports dyspnea and Reports wheezing Gastrointestinal: Gastrointestinal: Reports dyspepsia and Reports heartburn Musculoskeletal: Musculoskeletal: Reports no additional musculoskeletal complaints Integumentary/Breasts: Skin/Breast: Denies rash Neurologic: Reports system reviewed and no additional complaints, except as documented Allergic/Immunologic: Allergic/Immunologic: Reports wheezing [facility] Past Medical History Medical History (Updated 06/22/22 @ 09:19 by Delvis Keith MD) GERD (gastroesophageal reflux disease) IPF (idiopathic pulmonary fibrosis) IPF (idiopathic pulmonary fibrosis) Family History Family History (Updated 06/21/22 @ 06:04 by Syeda Montero MD) Other No family history of coronary artery disease Surgical History Surgical History (Updated 06/21/22 @ 06:04 by Syeda Montero MD) History of removal of ureteral stent Social History Social History Household Members: None Housing: House Patient Tobacco Use Status: Former Tobacco user Tobacco use type: Cigarette service: No Current occupational status: retired Meds Allergies Allergy/AdvReac Type Severity Reaction Status Date / Time amoxicillin [From Augmentin] Allergy Vomiting Verified 06/20/22 16:19 clavulanic acid Allergy Vomiting Verified 06/20/22 16:19 [From Augmentin] Active Medications: Current Medications Acetaminophen (Acetaminophen 325 Mg Tablet) 650 mg PO Q6H PRN PRN Reason: Pain, Mild (Pain Scale 1-3) Albuterol/Ipratropium (Albuterol/Iprat 2.5/0.5mg 3 Ml Ampul.Neb) 3 ml INHALE RQ4H PRN PRN Reason: Shortness of Breath/Wheezing Azithromycin (Azithromycin 500 Mg Tablet) 500 mg PO Q24H [facility] Last Admin: 06/22/22 05:51 Dose: 500 mg Docusate Sodium (Docusate Sodium 100 Mg Capsule) 100 mg PO DAILY PRN PRN Reason: Constipation Enoxaparin Sodium (Enoxaparin Sodium 40 Mg/0.4 Ml Syringe) 40 mg SUBCUT Q24H [facility] Last Admin: 06/22/22 07:30 Dose: 40 mg Ceftriaxone Sodium 1 gm/ (Sodium Chloride) 50 mls @ 100 mls/hr IV Q24H [facility] Last Infusion: 06/22/22 00:39 Dose: Infused Ondansetron HCl (Ondansetron Hcl 4 Mg/2 Ml Vial) 4 mg IVPUSH Q8H PRN PRN Reason: Nausea and Vomiting Prednisone (Prednisone 20 Mg Tablet) 40 mg PO DAILY LETTY Sodium Chloride (0.9 % Sodium Chloride Flush 3 Ml Syringe) 3 ml IVFLUSH QSHIFT LETTY Last Admin: 06/22/22 07:30 Dose: 3 ml Home Medications Medication Instructions Recorded Confirmed Last Taken Type codeine 10 mg-guaifenesin 100 mg/5 10 ml PO Q4-6H PRN Cough 06/21/22 06/21/22 Unknown History mL oral liquid doxycycline hyclate 100 mg capsule 100 mg PO BID 06/21/22 06/21/22 Unknown History prednisone 20 mg tablet 40 mg PO DAILY 06/21/22 06/21/22 Unknown History Physical Exam Vital Signs: Vital Signs: Last Vital Signs Temp 96.8 F 06/22/22 07:35 Pulse 75 06/22/22 07:35 Resp 18 06/22/22 07:35 BP 126/59 L 06/22/22 07:35 Pulse Ox 96 06/22/22 07:35 O2 Del Method 06/22/22 07:35 O2 Flow Rate 0.2 06/22/22 07:35 BMI result Body Mass Index 21.0 Const: General: comfortable HEENT: Head: Yes normal to inspection Eyes: General: appearance normal, both eyes and all related structures Neck: Neck: Yes trachea midline and Yes supple Chest: Chest palpation & inspection: normal inspection of the chest Resp: Auscultation: crackles bilateral 1/[address] way up and diminished lung sounds Cardio: Rate: regular rate Rhythm: regular rhythm Heart sounds: S1 normal heart sound present and S2 normal heart sound present GI: Inspection: Yes normal to inspection : General: Yes no CVA tenderness Back/Spine/Pelvis: Back: no CVA tenderness Skin: General skin exam: no rashes or lesions noted Extrem: General: Yes normal to inspection Results Laboratory Findings CBC and BMP: 06/21/22 04:41 06/21/22 04:41 Abnormal lab findings: Abnormal Labs 06/20/22 06/20/22 06/21/22 21:05 21:05 04:41 Hgb 11.7 L Hct 36.9 L MCH 26.5 L MCHC 30.7 L MPV 9.1 L Immature Gran % (Auto) 0.5 H 0.5 H Neut % (Auto) 94.5 H Lymph % (Auto) 19.7 L 3.9 L [place] % (Auto) 12.0 H 0.4 L Eos % (Auto) 5.8 H Lymph # (Auto) 0.2 L [place] # (Auto) 0.0 L Eos # (Auto) 0.5 H Abs Immat Gran (auto) 0.04 H ESR BUN 18 H Random Glucose 133 H Calcium 06/21/22 06/21/22 04:41 09:08 Hgb Hct MCH MCHC MPV Immature Gran % (Auto) Neut % (Auto) Lymph % (Auto) [place] % (Auto) Eos % (Auto) Lymph # (Auto) [place] # (Auto) Eos # (Auto) Abs Immat Gran (auto) ESR 42 H BUN 19 H Random Glucose 253 H Calcium 7.9 L D Microbiology: Microbiology 06/21/22 17:00 Sputum - Expectorated Gram Stain - Final 06/21/22 17:00 Sputum - Expectorated Sputum Culture - Final Diagnostic Findings CT scan - chest: image reviewed Assessment and Plan (1) Acute respiratory failure with hypoxia: Status: Acute (2) Acute exacerbation of chronic obstructive airways disease: Status: Acute (3) IPF (idiopathic pulmonary fibrosis): Status: Acute Possible IPF exacerbation (4) GERD (gastroesophageal reflux disease): Status: Acute (5) Pulmonary fibrosis: Status: Acute Plan Switch to p.o. prednisone 40 mg Switch to oral antibiotics upon discharge to complete an 8 day course with Vantin Stop azithromycin after 5 days Start Prilosec 40 mg a day She would be educated on the reflux diet Continue nebulized therapy with DuoNeb, the patient will benefit from a nebulizer upon discharge Start Breo once a day Awaiting blood work Requesting flutter valve for CPT for bronchopulmonary hygiene Will need to continue the oxygen to maintain a pulse ox above 89%. She will need a 6 minute walk test to address oxygen needs with activity The patient already has follow-up with Pulmonary as an outpatient next week Procedures Date of Service Date of Service: 06/22/22
--- NOTE | 2022-06-22 09:54 | MHC.CM.PN ---
Patient is not yet medically cleared for dc (still requiring O2, IV Ceftriaxone); home is the goal and CM will continue to follow.
--- NOTE | 2022-06-22 10:16 | P.PNIM_ITS ---
Subjective Subjective Date of Service: 06/22/22 Interval History: Breathing improved though still wheezing Coughing up thick white sputum Still on 2L O2 Review of Systems Review of Systems: Yes all other systems are reviewed and are negative Physical Exam Vital Signs: Vital Signs: Last Vital Signs Temp 96.8 F 06/22/22 07:35 Pulse 75 06/22/22 07:35 Resp 18 06/22/22 07:35 BP 126/59 L 06/22/22 07:35 Pulse Ox 96 06/22/22 07:35 O2 Del Method 06/22/22 07:35 O2 Flow Rate 0.2 06/22/22 07:35 BMI result Body Mass Index 21.0 Gen: in no acute distress HEENT: sclera anicteric, moist mucus membranes Neck: supple Lungs: scattered inspiratory crackles Heart: regular rate and rhythm, no murmurs Abd: soft, non-tender, non-distended Ext: no edema Skin: warm/well-perfused Neuro: alert and oriented x3, no focal findings Psych: appropriate affect Objective Data Active Medications Acetaminophen (Acetaminophen 325 Mg Tablet) 650 mg PO Q6H PRN PRN Reason: Pain, Mild (Pain Scale 1-3) Albuterol/Ipratropium (Albuterol/Iprat 2.5/0.5mg 3 Ml Ampul.Neb) 3 ml INHALE RQ4H PRN PRN Reason: Shortness of Breath/Wheezing Azithromycin (Azithromycin 500 Mg Tablet) 500 mg PO Q24H [facility] Last Admin: 06/22/22 05:51 Dose: 500 mg Documented By: ANYA Docusate Sodium (Docusate Sodium 100 Mg Capsule) 100 mg PO DAILY PRN PRN Reason: Constipation Enoxaparin Sodium (Enoxaparin Sodium 40 Mg/0.4 Ml Syringe) 40 mg SUBCUT Q24H [facility] Last Admin: 06/22/22 07:30 Dose: 40 mg Documented By: BEATRIZ Fluticasone/Vilanterol (Fluticasone/Vilanterol 200/25 Blst.W.Dev) 1 puff INHALE RDAILY [facility] Ceftriaxone Sodium 1 gm/ (Sodium Chloride) 50 mls @ 100 mls/hr IV Q24H [facility] Last Infusion: 06/22/22 00:39 Dose: 0 mls/hr Documented By: ANYA Omeprazole (Omeprazole 40 Mg Capsule.Dr) 40 mg PO DAILY@0630 [facility] Ondansetron HCl (Ondansetron Hcl 4 Mg/2 Ml Vial) 4 mg IVPUSH Q8H PRN PRN Reason: Nausea and Vomiting Prednisone (Prednisone 20 Mg Tablet) 40 mg PO DAILY [facility] Sodium Chloride (0.9 % Sodium Chloride Flush 3 Ml Syringe) 3 ml IVFLUSH QSHIFT [facility]TY Last Admin: 06/22/22 07:30 Dose: 3 ml Documented By: BEATRIZ Labs CBC & Chem 7: 06/21/22 04:41 06/21/22 04:41 Labs: Laboratory Results - last 24 hr 06/21/22 06/21/22 04:41 14:00 Procalcitonin 0.04 Respiratory Panel [place] See Note Adenovirus (Rapid PCR) Not Detected B.pert (TEM-PCR) Not Detected B.parapertussis DNA PCR Not Detected C. pneumoniae DNA (PCR) Not Detected Coronavirus OC43 (PCR) Not Detected Coronavirus HKU1 (PCR) Not Detected Coronavirus 229E (PCR) Not Detected Coronavirus NL63 (PCR) Not Detected Human Metapneumovir PCR Not Detected Influenza A (RT-PCR) Not Detected Influenza B (RT-PCR) Not Detected M. pneumoniae (PCR) Not Detected Parainfluenza 1 (PCR) Not Detected Parainfluenza 2 (PCR) Not Detected Parainfluenza 3 (PCR) Not Detected Parainfluenza 4 (PCR) Not Detected RSV (PCR) Not Detected Entero/Rhino (PCR) Not Detected SARS-CoV-2 RNA (RT-PCR) Not Detected Microbiology Microbiology Results: Microbiology 06/21/22 17:00 Gram Stain - Final Sputum - Expectorated Sputum Culture - Final Assessment and Plan (1) IPF (idiopathic pulmonary fibrosis): Status: Acute (2) Acute respiratory failure with hypoxia: Status: Acute Plan hospital d#2 72yo F with IPF presenting with dyspnea + productive cough + wheeze, found to be hyypoxic # IPF exacerbation - continue ceftriaxone d#2 [change to cefpodoxime upon discharge] + azithromycin d#2, PCT low, sputum Cx pending, RVP negative - IV steroids->PO nebulized bronchodilators - Pulmonology consulted, serologic workup sent and outpt f/u arranged, started ICS/LABA Breo, CPT/flutter valve # acute hypoxic resp failure - wean O2 as tolerated, home O2 eval in AM # VTE ppx: LMWH Quality Stroke Does the patient have a stroke diagnosis?: No VTE Prior VTE?: No VTE Risk Level:: Medical - moderate - high VTE Device Contraindication: Treatment Not Indicated VTE Drug Contraindication: N/A - Med Ordered
[2022-06-23 03:52] VITALS: BP 106/57; PULSE 70; RESP 18; TEMP 36.1; O2SAT 98
[2022-06-23] MEDS: Azithromycin 500 MG TABLET PO (06:12)
[2022-06-23] MEDS: Omeprazole 40 MG CAPSULE.DR PO (06:12)
[2022-06-23 07:41] VITALS: BP 130/60; PULSE 61; RESP 18; TEMP 36; O2SAT 99
[2022-06-23] MEDS: predniSONE 20 MG TABLET 40 MG PO (08:12)
[2022-06-23] MEDS: Enoxaparin Sodium 40 MG/0.4 ML SYRINGE SUBCUT (08:12)
[2022-06-23] MEDS: 0.9 % Sodium Chloride Flush 3 ML SYRINGE IVFLUSH (08:12)
[2022-06-23 08:51] LABS: Anti DNA DS Antibody 2 IU/mL; Myeloperoxidase Antibody <1.0 AI; Proteinase 3 PR3 Antibodies <1.0 AI; Scleroderma 70 Antibody <1.0 NEG AI (<1.0 NEG)
--- NOTE | 2022-06-23 09:40 | PM.PNPUL ---
Subjective Subjective Date of Service: 06/23/22 Interval history: The patient was seen on exam. She still feels well. She would like to go home. She is going to have a 6 minute walk test today to see where her oxygen requirements are. In the meantime she is tolerating the prednisone and also the antibiotics. Should be switched to p.o. and complete a course. She already has a follow-up with Pulmonary in the coming weeks. Objective Data Labs CBC & Chem 7: 06/21/22 04:41 06/21/22 04:41 Labs: Laboratory Results - last 24 hr 06/21/22 09:08 Proteinase 3 (PR3) Ab <1.0 Myeloperoxidase Ab <1.0 Scl-70 Scleroderma Ab <1.0 NEG Double Strand DNA Ab 2 Microbiology Microbiology Results: Microbiology 06/21/22 17:00 Sputum - Expectorated Gram Stain - Final 06/21/22 17:00 Sputum - Expectorated Sputum Culture - Final Review of Systems Constitutional: Denies fever(s) Eyes: Denies change in vision Reports system reviewed and no additional complaints, except as documented Cardiovascular: Denies chest pain and Reports dyspnea Respiratory: Reports change in phlegm color, Reports chest congestion, Reports cough, Denies hemoptysis, Reports dyspnea and Reports wheezing Gastrointestinal: Reports dyspepsia and Reports heartburn Musculoskeletal: Reports no additional musculoskeletal complaints Skin/Breast: Denies rash Reports system reviewed and no additional complaints, except as documented Allergic/Immunologic: Reports wheezing Physical Exam Vital Signs: Vital Signs: Last Vital Signs Temp 96.8 F 06/23/22 07:41 Pulse 61 06/23/22 07:41 Resp 18 06/23/22 07:41 BP 130/60 06/23/22 07:41 Pulse Ox 99 06/23/22 07:41 O2 Del Method 06/23/22 07:41 O2 Flow Rate 0.2 06/23/22 07:41 BMI result Body Mass Index 21.0 Const: General: comfortable HEENT: Head: Yes normal to inspection Eyes: General: appearance normal, both eyes and all related structures Neck: Neck: Yes trachea midline and Yes supple Chest: Chest palpation & inspection: normal inspection of the chest Resp: Auscultation: crackles bilateral 1/[address] up and diminished lung sounds Cardio: Rate: regular rate Rhythm: regular rhythm Heart sounds: S1 normal heart sound present and S2 normal heart sound present GI: Inspection: Yes normal to inspection : General: Yes no CVA tenderness Back/Spine/Pelvis: Back: no CVA tenderness Skin: General skin exam: no rashes or lesions noted Extrem: General: Yes normal to inspection Procedures Date of Service Date of Service: 06/23/22 Assessment and Plan Assessment and plan (1) Acute respiratory failure with hypoxia: Status: Acute (2) Acute exacerbation of chronic obstructive airways disease: Status: Acute (3) Pulmonary fibrosis: Status: Acute (4) GERD (gastroesophageal reflux disease): Status: Acute Plan P.o. prednisone with taper by 10 mg every 2-3 days Completed a day course of antibiotics Will have a 6 minute walk test to assess oxygen requirements. I explained to the patient that when she follows up in the office we can evaluate her for conserving device. The patient does travel to [place] and therefore she will need a portable oxygen concentrator at some point if she qualifies Awaiting blood work Follow-up in office in a couple weeks Time Spent With Patient Time: Total time spent is greater than 50% in coordination of care (as documented) at patient's floor/unit and/or counseling patient: Progress Note: Quality Stroke Does the patient have a stroke diagnosis?: No
[2022-06-23 10:14] VITALS: PULSE 107; PULSE 114; PULSE 87; O2SAT 83; O2SAT 92
--- NOTE | 2022-06-23 11:00 | P.DS_ITS ---
DS: Providers Provider Date of Service: 06/23/22 Date of admission: 06/21/22 01:22 Date of discharge: 06/23/22 Primary care physician: Yu Corona MD Consults: 06/21/22 08:20 Consult to Pulmonology Routine Consulting Provider: [facility] Reason for consultation: IPF DS: Diagnosis Discharge Diagnosis (1) Acute respiratory failure with hypoxia: Status: Acute (2) Acute exacerbation of chronic obstructive airways disease: Status: Acute (3) GERD (gastroesophageal reflux disease): Status: Acute (4) IPF (idiopathic pulmonary fibrosis): Status: Acute DS: Summary Hospital Course Hospital Course: from admission history and physical by hospitalist Syeda Montero, 06/21/22: This is a 72-year-old female past medical history of IPF who presents to the hospital with complaints of shortness of breath, cough, and sputum production.? Patient reports that her symptoms started? at the end of May, she was seen in the hospital on 06/09, and at that time was? diagnosed with bronchitis, was given doxycycline and Augmentin and discharged home.? Patient reports that she was unable to take Augmentin because it made her feel very sick and she vomited after every pill, she did take doxycycline, she was also given prednisone. she reports that she initially improved but then about her few days ago developed worsening shortness of breath, worsening cough, and worsening sputum production.? Patient reports no fever but has chills, denies any chest pain, no palpitations, no abdominal pain nausea or vomiting, no diarrhea or constipation, no urinary symptoms and no lower extremity edema.? ? 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 ?patient reports that? her IPF is usually stable and has not been sick for the past 7 years and that is why she does not really follow up with extrusion line operator. On arrival to the ED patient was found to be satting 87-89% on room air.? Patient reports no use of oxygen at home. Labs? Are significant for WBC count of 5.6, hemoglobin of 11.7, hematocrit 36.9, BUN of 19, calcium 7.9, COVID-19 negative, chest x-ray showed stable chronic changes with no acute abnormality but when compared to chest x-ray from May it appears worse. ? Patient started on antibiotics and will be admitted for further management This 72yo F with IPF presenting with dyspnea + productive cough + wheeze was admitted for hypoxia. Respiratory virus PCR panel was negative. She was treated with supplemental oxygen, antibiotics [azithromycin and ceftriaxone], and steroids. Pulmonology was consulted and serologic workup initiated. Symptoms improved, though she will require 3 liters of supplemental O2 with ambulation. She will follow-up with Pulmonology [Dr Delvis Keith at [facility]] within 1 week. She was prescribed prednisone taper, cefpodoxime, azithromycin, Duoneb solution, nebulizer, albuterol rescue inhaler, and Breo controller inh aler upon discharge. Time Spent with Patient Time attestation: Total time spent providing and/or coordinating discharge services: Discharge coordination time: Greater than 30 minutes Quality: Safe Use of Opioids Does Pt have an Active Cancer Diagnosis on the Problem List?: No Quality: Stroke Does the patient have a stroke diagnosis?: No Physical Exam Vital Signs: Vital Signs: Last Vital Signs Temp 96.8 F 06/23/22 07:41 Pulse 61 06/23/22 07:41 Resp 18 06/23/22 07:41 BP 130/60 06/23/22 07:41 Pulse Ox 99 06/23/22 07:41 O2 Del Method 06/23/22 07:41 O2 Flow Rate 0.2 06/23/22 07:41 BMI result Body Mass Index 21.0 Gen: in no acute distress HEENT: sclera anicteric, moist mucus membranes Neck: supple Lungs: scattered expiratory rhonchi bilaterally Heart: regular rate and rhythm, no murmurs Abd: soft, non-tender, non-distended Ext: no cyanosis, clubbing, or edema Skin: warm/well-perfused Neuro: alert and oriented x3, no focal findings Psych: appropriate affect DS: Data Data Completed and Pending Completed studies during hospitalization [Text1]: Laboratory Results WBC 5.6 X10*3/uL (4.8-10.8) 06/21/22 04:41 RBC 4.26 X10*6/uL (4.20-5.50) 06/21/22 04:41 Hgb 11.7 g/dl (12.0-16.0) L 06/21/22 04:41 Hct 36.9 % (37.0-47.0) L 06/21/22 04:41 MCV 86.6 fL (80.0-98.0) 06/21/22 04:41 MCH 27.5 pg (27.0-33.0) 06/21/22 04:41 MCHC 31.7 g/dl (31.0-35.0) 06/21/22 04:41 RDW 14.1 % (11.0-16.0) 06/21/22 04:41 Plt Count 294 X10*3/uL (160-400) 06/21/22 04:41 MPV 9.4 fL (9.4-12.3) 06/21/22 04:41 Immature Gran % (Auto) 0.5 % (0.0-0.4) H 06/21/22 04:41 Neut % (Auto) 94.5 % (45-73) H 06/21/22 04:41 Lymph % (Auto) 3.9 % (20-40) L 06/21/22 04:41 Callaway % (Auto) 0.4 % (2-11) L 06/21/22 04:41 Eos % (Auto) 0.2 % (0-4) 06/21/22 04:41 Baso % (Auto) 0.5 % (0-2) 06/21/22 04:41 Lymph # (Auto) 0.2 X10*3/uL (1.2-4.9) L 06/21/22 04:41 Callaway # (Auto) 0.0 X10*3/uL (0.1-1.2) L 06/21/22 04:41 Eos # (Auto) 0.0 X10*3/uL (0.0-0.4) 06/21/22 04:41 Baso # (Auto) 0.0 X10*3/uL (0.0-0.2) 06/21/22 04:41 Abs Immat Gran (auto) 0.03 X10*3/uL (0.00-0.03) 06/21/22 04:41 Absolute Neuts (auto) 5.3 x10*3/uL (2.0-8.3) 06/21/22 04:41 Absolute Nucleated RBC 0.000 X10*3/uL (0.0-0.012) 06/21/22 04:41 Nucleated RBC % (auto) 0.0 /100WBC (0.0-0.2) 06/21/22 04:41 Smear Tech's Comments VERIFIED 06/21/22 04:41 ESR 42 MM/HR (0-20) H 06/21/22 09:08 Sodium 141 mmol/L (135-145) 06/21/22 04:41 Potassium 3.3 mmol/L (3.3-5.1) 06/21/22 04:41 Chloride 107 mmol/L (96-108) 06/21/22 04:41 Carbon Dioxide 24 mmol/L (22-29) 06/21/22 04:41 Anion Gap 13 (12-20) 06/21/22 04:41 BUN 19 mg/dL (9-16) H 06/21/22 04:41 Creatinine 0.62 mg/dL (0.5-1.4) 06/21/22 04:41 Estim Creat Clear Calc 63.8 06/21/22 04:41 Estimated GFR > 60 06/21/22 04:41 Random Glucose 253 mg/dL (60-115) H 06/21/22 04:41 Calcium 7.9 mg/dL (8.4-10.2) L D 06/21/22 04:41 Procalcitonin 0.04 ng/mL 06/21/22 04:41 Proteinase 3 (PR3) Ab <1.0 AI 06/21/22 09:08 Myeloperoxidase Ab <1.0 AI 06/21/22 09:08 Scl-70 Scleroderma Ab <1.0 NEG AI (<1.0 NEG) 06/21/22 09:08 Double Strand DNA Ab 2 IU/mL 06/21/22 09:08 Respiratory Panel Gamez See Note 06/21/22 14:00 Adenovirus (Rapid PCR) Not Detected (Not Detect.) 06/21/22 14:00 B.pert (TEM-PCR) Not Detected (Not Detect.) 06/21/22 14:00 B.parapertussis DNA PCR Not Detected (Not Detect.) 06/21/22 14:00 C. pneumoniae DNA (PCR) Not Detected (Not Detect.) 06/21/22 14:00 Coronavirus OC43 (PCR) Not Detected (Not Detect.) 06/21/22 14:00 Coronavirus HKU1 (PCR) Not Detected (Not Detect.) 06/21/22 14:00 Coronavirus 229E (PCR) Not Detected (Not Detect.) 06/21/22 14:00 COVID-19 (JUANITA) Negative (Negative) 06/20/22 21:05 COVID-19 Clin Com See Note 06/20/22 21:05 Coronavirus NL63 (PCR) Not Detected (Not Detect.) 06/21/22 14:00 Human Metapneumovir PCR Not Detected (Not Detect.) 06/21/22 14:00 Influenza A (RT-PCR) Not Detected (Not Detect.) 06/21/22 14:00 Influenza B (RT-PCR) Not Detected (Not Detect.) 06/21/22 14:00 M. pneumoniae (PCR) Not Detected (Not Detect.) 06/21/22 14:00 Parainfluenza 1 (PCR) Not Detected (Not Detect.) 06/21/22 14:00 Parainfluenza 2 (PCR) Not Detected (Not Detect.) 06/21/22 14:00 Parainfluenza 3 (PCR) Not Detected (Not Detect.) 06/21/22 14:00 Parainfluenza 4 (PCR) Not Detected (Not Detect.) 06/21/22 14:00 RSV (PCR) Not Detected (Not Detect.) 06/21/22 14:00 Entero/Rhino (PCR) Not Detected (Not Detect.) 06/21/22 14:00 SARS-CoV-2 RNA (RT-PCR) Not Detected (Not Detect.) 06/21/22 14:00 Impressions Chest X-Ray 06/20/22 17:00 IMPRESSION: Stable chronic changes. No acute abnormality. Discharge Plan Discharge Patient Disposition: Home, Self-Care Discharge Diagnosis: hypoxic respiratory failure due to idiopathic pulmonary fibrosis Referrals: Yu Corona MD [Primary Care Provider] - 1 Week Delvis Keith MD [Physician] - 1 Week Discharge Medications: New ipratropium-albuterol 0.5 mg-3 mg(2.5 mg base)/3 mL Solution For Nebulization 3 ml inhalation RQ4H PRN (Reason: Shortness Of Breath/Wheezing) Qty: 50 0RF omeprazole 40 mg Capsule,Delayed Release(Dr/Ec) 40 mg PO DAILY@0630 Qty: 30 0RF azithromycin 500 mg Tablet 500 mg PO Q24H Qty: 2 0RF fluticasone furoate-vilanterol [Breo Ellipta] 200-25 mcg/dose Blister With Device 1 puff inhalation RDAILY Qty: 1 0RF albuterol sulfate 90 mcg/actuation HFA aerosol inhaler 2 puff inhalation Q4-6H PRN (Reason: shortness of breath or wheezing) Qty: 8.5 0RF Rx Instructions: use with spacer device cefpodoxime 200 mg tablet 200 mg PO BID Qty: 10 0RF Rx Instructions: must administer with a meal/food prednisone 10 mg tablet See Rx Instructions .ROUTE .COMPLEX Qty: 30 0RF Rx Instructions: 40 mg daily x 3 days, then 30 mg daily x 3 days, then 20 mg daily x 3 days, then 10 mg daily x 3 days Discontinued doxycycline hyclate 100 mg Capsule 100 mg PO BID prednisone 20 mg Tablet 40 mg PO DAILY codeine-guaifenesin 10-100 mg/5 mL Liquid 10 ml PO Q4-6H PRN (Reason: Cough) Discharge Orders: Discharge Order (Routine); Ordered 06/23/22 Ordered By: Shaquille Browne Diet: Advance to usual diet Activity on Discharge: O2 3L c ambulation Stand Alone Forms: Patient Portal Discharge page Care Plan Goals: pulmonary health Health Concerns: hypoxic respiratory failure due to idiopathic pulmonary fibrosis Plan of Treatment: prednisone taper as follows: 40 mg daily x 3 days, then 30 mg daily x 3 days, then 20 mg daily x 3 days, then 10 mg daily x 3 days antibiotics as follows: azithromycin 500 mg daily x 2 days cefpodoxime 200 mg twice daily x 5 days use Breo inhaler once daily use albuterol inhaler for rescue in case of wheeze or shortness of breath; at home, use nebulized Duoneb solution home oxygen 3 liters with ambulation follow up with Dr Delvis Keith [[facility] Pulmonology] next week Please return to the hospital if you experience recurrent or worsening symptoms Assessment: See Discharge Summary Patient Instructions: Pulmonary Fibrosis (DC), Using Oxygen at Home (DC)
--- NOTE | 2022-06-23 11:04 | MHC.CM.PN ---
Patient has been medically cleared for dc to home today, self care. Last IMM addressed on 06/21/22.
[2022-06-23 11:28] VITALS: BP 131/60; PULSE 79; RESP 18; TEMP 36; O2SAT 99
[2022-06-23 15:01] LABS: Anti Nuclear Antibody Screen NEGATIVE (NEGATIVE)
[2022-06-23 18:31] LABS: Cyclic Citrullinated Peptide <16 UNITS
[2022-06-24 06:21] LABS: Immunoglobulin E 19 kU/L (<OR=114)
[2022-07-11 12:02] LABS: Asperg fumigatus Precip Abs NEGATIVE (NEGATIVE); Micropoly faeni Abs NEGATIVE (NEGATIVE); Pigeon serum Abs NEGATIVE (NEGATIVE); Saccharo pora viridis Abs NEGATIVE (NEGATIVE); Thermo candidus Abs NEGATIVE (NEGATIVE); Thermoa vulgaris #1 NEGATIVE (NEGATIVE)
== END 2022-06-23 14:03 | disposition home or self-care (01) | DRG 196 ==
LOC: HO.ED 06-21 01:29 → HO.EDOVER 06-21 03:03 → HO.S3 06-21 09:37
PROVIDERS: Hospitalist; Admitting Provider Internal Medicine; Emergency Provider Internal Medicine; PCP Family Medicine; Visit Provider Family Medicine
DX: J84.112 Idiopathic pulmonary fibrosis (principal); J96.01 Acute respiratory failure with hypoxia; J44.0 Chronic obstructive pulmonary disease with (acute) lower respiratory infection; K21.9 Gastro-esophageal reflux disease without esophagitis; Z20.822 Contact with and (suspected) exposure to COVID-19; Z87.891 Personal history of nicotine dependence; Z88.0 Allergy status to penicillin; Z79.51 Long term (current) use of inhaled steroids; Z79.899 Other long term (current) drug therapy
CPT/HCPCS: 36415; 71046; 80048; 82785; 84145; 85025; 85652; 86021; 86038; 86039; 86200; 86225; 86235; 86331; 86606; 86609; 87070; 87205; 87633; 87635; 94640; 99285; J0696; J1650; J2920; J2930

== ENCOUNTER → 2022-07-08 14:42 | Outpatient (BNVA) | payer MEDICARE, OTHER, SELFPAY | PROVIDERS: PCP Family Medicine; Visit Provider Hospitalist | DX: J44.1 Chronic obstructive pulmonary disease with (acute) exacerbation (principal); J96.20 Acute and chronic respiratory failure, unspecified whether with hypoxia or hypercapnia; J84.112 Idiopathic pulmonary fibrosis; K21.9 Gastro-esophageal reflux disease without esophagitis; Z79.899 Other long term (current) drug therapy; Z99.81 Dependence on supplemental oxygen | CPT/HCPCS: 99212 ==

== ENCOUNTER 2022-08-05 14:03 | Outpatient (REF) | payer MEDICARE, OTHER, SELFPAY ==
--- NOTE | ~2022-08-05 | XR_ITS ---
EXAMINATION: XR CHEST CLINICAL INFORMATION: Idiopathic pulmonary fibrosis COMPARISON: Previous chest CT and May 2022 and chest x-rays May and June 2022 TECHNIQUE: 2 views of the chest were obtained. FINDINGS: The cardiac and mediastinal contours are stable. The lung volumes are low and there is shift of the central mediastinal structures to the left. There is evidence of severe diffuse interstitial disease. This does not appear appreciably changed. There is no pleural effusion or pneumothorax. Bony structures are unremarkable. XR/XR chest 2V IMPRESSION: Severe interstitial lung disease similar to recent exams.
== END 2022-08-05 14:04 | disposition home or self-care (01) ==
LOC: HO.XRAY 14:03
PROVIDERS: Visit Provider Hospitalist
DX: J96.20 Acute and chronic respiratory failure, unspecified whether with hypoxia or hypercapnia (principal); J84.112 Idiopathic pulmonary fibrosis; K21.9 Gastro-esophageal reflux disease without esophagitis
CPT/HCPCS: 71046; 94618; 99212

== ENCOUNTER → 2022-08-31 14:45 | Outpatient (REF) | payer MEDICARE, OTHER, SELFPAY ==
--- NOTE | 2022-08-31 14:50 | ECG_ITS ---
Test Reason : J44.9 Blood Pressure : / mmHG Vent. Rate : 093 BPM Atrial Rate : 093 BPM P-R Int : 122 ms QRS Dur : 094 ms QT Int : 348 ms P-R-T Axes : 006 -23 015 degrees QTc Int : 432 ms Sinus rhythm with Premature atrial complexes Incomplete right bundle branch block Nonspecific T wave abnormality Anterior leads Abnormal ECG When compared with ECG of 09-JUN-2022 14:37, Premature atrial complexes are now Present Nonspecific T wave abnormality has replaced inverted T waves in Anterior leads Referred By: Delvis Keith Electronically Signed By:VISHAL MEDINA MD
== END ==
LOC: HO.CARD 14:45
PROVIDERS: PCP Family Medicine; Visit Provider Hospitalist
DX: J44.9 Chronic obstructive pulmonary disease, unspecified (principal); I49.1 Atrial premature depolarization; I45.19 Other right bundle-branch block; R94.31 Abnormal electrocardiogram [ECG] [EKG]
CPT/HCPCS: 93005